=== PATIENT | male | born 1945 | race Caucasian/White ===

== ENCOUNTER 2020-02-25 09:31 | Inpatient (IN) | payer OTHER, MEDICARE ==
[~2020-02-25] VITALS: Ht 167.6 cm; Wt 65.8 kg
[2020-02-25 10:08] LABS: BASOPHILS % 0.2 % (0.0-2.0); EOSINOPHILS % 0.2 % (0.0-5.0); HEMATOCRIT. 41.2 % (42.0-52.0); HEMOGLOBIN. 13.6 g/dL (14.0-18.0); LYMPHOCYTES % 15.4 % (20.0-50.0); MEAN CORPUSCULAR HEMOGLOBIN 28.7 pg (28.0-32.0); MEAN CORPUSCULAR VOLUME 87.2 fL (80.0-94.0); MEAN PLATELET VOLUME 9.7 fl (7.4-10.4); MONOCYTES % 5.6 % (2.0-8.0); NEUTROPHILS % 78.6 % (40.0-76.0); PLATELET 194 x1000/uL (130-400); RED BLOOD CELL COUNT 4.73 mill/uL (4.7-6.1); RED CELL DISTRIBUTION WIDTH 14.2 % (11.6-14.6)
[2020-02-25 10:15] LABS: CHLORIDE 104 mEq/L (98-107)
[2020-02-25 10:18] LABS: PROTHROMBIN TIME 10.1 sec (9.6-11.0)
[2020-02-25] MEDS ORDERED: SODIUM CHLORIDE 0.9% 1,000 ML IV ONE (10:59)
[2020-02-25] MEDS ORDERED: ASPIRIN 325MG EC TABLET PO NR (11:00)
[2020-02-25] MEDS ORDERED: TRAZODONE HCL 50MG TABLET PO PRN (12:45)
[2020-02-25] MEDS ORDERED: ACETAMINOPHEN 325MG TABLET PO PRN (12:45)
[2020-02-25] MEDS ORDERED: ONDANSETRON HCL 4MG/2ML INJ IV PRN (12:45)
[2020-02-25] MEDS: SODIUM CHLORIDE 0.9% 1,000 ML IV SCH ×2 (12:52→18:11)
[2020-02-25 17:14] VITALS: BP 158/88
[2020-02-25 17:27] VITALS: BP 158/88
[2020-02-25 18:00] VITALS: BP 129/52
[2020-02-25 20:00] VITALS: BP 130/68
[2020-02-25] MEDS: HEPARIN 5000 UNITS/ML VIAL SUBCUT SCH (20:18)
[2020-02-25] MEDS: ATORVASTATIN CALCIUM 10MG TABLET PO SCH (20:18)
[2020-02-25 22:00] VITALS: BP 98/49
[2020-02-26] VITALS (30 sets, daily range): BP systolic 104–197; BP diastolic 58–104
[2020-02-26 06:25] LABS: BASOPHILS % 0.2 % (0.0-2.0); EOSINOPHILS % 1.9 % (0.0-5.0); HEMATOCRIT. 36.9 % (42.0-52.0); HEMOGLOBIN. 12.3 g/dL (14.0-18.0); LYMPHOCYTES % 30.2 % (20.0-50.0); MEAN CORPUSCULAR HEMOGLOBIN 29.1 pg (28.0-32.0); MEAN CORPUSCULAR VOLUME 87.1 fL (80.0-94.0); MEAN PLATELET VOLUME 10.2 fl (7.4-10.4); MONOCYTES % 9.6 % (2.0-8.0); NEUTROPHILS % 58.1 % (40.0-76.0); PLATELET 149 x1000/uL (130-400); RED BLOOD CELL COUNT 4.24 mill/uL (4.7-6.1); RED CELL DISTRIBUTION WIDTH 14.1 % (11.6-14.6)
[2020-02-26 06:53] LABS: CHLORIDE 109 mEq/L (98-107)
[2020-02-26] MEDS: SODIUM CHLORIDE 0.9% 1,000 ML IV SCH (07:30)
[2020-02-26] MEDS: POTASSIUM CHLORIDE 20MEQ TABLET SR PO SCH (09:32)
[2020-02-26] MEDS: HEPARIN 5000 UNITS/ML VIAL SUBCUT SCH ×2 (09:33→21:03)
[2020-02-26] MEDS: AMLODIPINE 2.5MG TABLET PO SCH ×2 (09:33→21:03)
[2020-02-26] MEDS ORDERED: NEBI10TA2 PO (11:51)
[2020-02-26] MEDS ORDERED: NIFE90TA2 PO (11:51)
[2020-02-26] MEDS: NEBIVOLOL HCL 5 MG TABLET PO SCH (12:02)
[2020-02-26] MEDS: NIFEDIPINE XL 90MG TAB PO SCH (12:03)
[2020-02-26] MEDS ORDERED: GABA-529 PO (12:07)
[2020-02-26] MEDS ORDERED: LOSA100T32 PO (12:13)
[2020-02-26] MEDS ORDERED: ATOR-2 PO (12:13)
[2020-02-26] MEDS ORDERED: TRIA1TAB92 MT (12:13)
[2020-02-26] MEDS ORDERED: EZET10TA13 PO (12:13)
[2020-02-26] MEDS ORDERED: HYDR100T26 PO (12:13)
[2020-02-26] MEDS: ATORVASTATIN CALCIUM 10MG TABLET PO SCH (21:03)
[2020-02-27] VITALS (10 sets, daily range): BP systolic 108–145; BP diastolic 58–81
[2020-02-27 07:36] LABS: BASOPHILS % 0.5 % (0.0-2.0); EOSINOPHILS % 2.3 % (0.0-5.0); HEMATOCRIT. 38.3 % (42.0-52.0); LYMPHOCYTES % 29.1 % (20.0-50.0); MEAN CORPUSCULAR HEMOGLOBIN 29.5 pg (28.0-32.0); MEAN CORPUSCULAR VOLUME 86.6 fL (80.0-94.0); MEAN PLATELET VOLUME 9.9 fl (7.4-10.4); MONOCYTES % 7.9 % (2.0-8.0); NEUTROPHILS % 60.2 % (40.0-76.0); PLATELET 149 x1000/uL (130-400); RED BLOOD CELL COUNT 4.42 mill/uL (4.7-6.1); RED CELL DISTRIBUTION WIDTH 14.3 % (11.6-14.6)
[2020-02-27 08:08] LABS: CHLORIDE 105 mEq/L (98-107)
[2020-02-27] MEDS: POTASSIUM CHLORIDE 20MEQ TABLET SR PO SCH (08:44)
[2020-02-27] MEDS: NEBIVOLOL HCL 5 MG TABLET PO SCH (08:44)
[2020-02-27] MEDS: HEPARIN 5000 UNITS/ML VIAL SUBCUT SCH (08:44)
[2020-02-27] MEDS: AMLODIPINE 2.5MG TABLET PO SCH (08:44)
[2020-02-27] MEDS: NIFEDIPINE XL 90MG TAB PO SCH (08:45)
== END 2020-02-27 11:48 | disposition home or self-care (01) | DRG 312 ==
LOC: ER 09:31 → 3WST 11:37 → EDBEDREQTM 11:45 → EDBEDREQ 11:45 → ENRESERV 16:15
PROVIDERS: ADMIT Specialist; ATTEND Specialist
DX: I95.2 Hypotension due to drugs (principal); N17.9 Acute kidney failure, unspecified; R73.9 Hyperglycemia, unspecified; I10 Essential (primary) hypertension; Z95.5 Presence of coronary angioplasty implant and graft; I25.10 Atherosclerotic heart disease of native coronary artery without angina pectoris; E78.5 Hyperlipidemia, unspecified; M54.9 Dorsalgia, unspecified; R11.2 Nausea with vomiting, unspecified; Z90.49 Acquired absence of other specified parts of digestive tract; T46.5X5A Adverse effect of other antihypertensive drugs, initial encounter; Y92.89 Other specified places as the place of occurrence of the external cause
CPT/HCPCS: 36415; 71045; 80053; 80061; 83735; 83880; 84145; 84443; 84484; 85025; 93005; 93306; 97162; 97166; 99285; J1644

== ENCOUNTER 2021-03-13 09:58 | Emergency (ER) | payer OTHER, MEDICARE ==
[~2021-03-13] VITALS: Ht 162.6 cm; Wt 68.0 kg
[~2021-03-13 09:58] MED LIST: ATOR-2 PO; EZET10TA13 PO; GABA-529 PO; NEBI10TA2 PO; NIFE90TA2 PO
[2021-03-13 13:29] LABS: BASOPHILS % 0.1 % (0.0-2.0); HEMATOCRIT. 41.4 % (42.0-52.0); HEMOGLOBIN. 14.1 g/dL (14.0-18.0); LYMPHOCYTES % 16.6 % (20.0-50.0); MEAN CORPUSCULAR HEMOGLOBIN 28.2 pg (28.0-32.0); MEAN CORPUSCULAR VOLUME 82.8 fL (80.0-94.0); MEAN PLATELET VOLUME 9.6 fl (7.4-10.4); NEUTROPHILS % 69.3 % (40.0-76.0); PLATELET 115 x1000/uL (130-400); RED CELL DISTRIBUTION WIDTH 14.1 % (11.6-14.6)
[2021-03-13 13:33] LABS: CHLORIDE 99 mEq/L (98-107)
[2021-03-13 14:29] LABS: PROTHROMBIN TIME 10.3 sec (9.6-11.0)
[2021-03-13 14:30] LABS: CLARITY URINE CLEAR (CLEAR); COLOR URINE YELLOW (YELLOW); KETONES URINE 1+ (NEGATIVE); LEUKOCYTE ESTERASE URINE NEGATIVE (NEGATIVE); NITRITE URINE NEGATIVE (NEGATIVE); OCCULT BLOOD URINE NEGATIVE (NEGATIVE); PH URINE 6.5 (4.5-8.0); PROTEIN URINE 1+ (NEGATIVE); SPECIFIC GRAVITY URINE 1.008 (1.005-1.030)
[2021-03-13] MEDS ORDERED: CEFTRIAXONE 1 G PREMIX 50 ML IV ONE (15:00)
[2021-03-13] MEDS ORDERED: AZITHROMYCIN 500 MG in DEXT 5% WATER 250 ML IV SCH (15:00)
[2021-03-13] MEDS ORDERED: AMOX-494 MT (16:34)
[2021-03-13 18:23] VITALS: BP 160/74
== END 2021-03-13 18:24 | disposition home or self-care (01) ==
LOC: ER 09:58
DX: U07.1 COVID-19 (principal); J18.9 Pneumonia, unspecified organism; R20.2 Paresthesia of skin; Z79.899 Other long term (current) drug therapy
CPT/HCPCS: 36415; 71045; 80053; 81003; 84484; 85025; 85610; 87040; 93005; 96365; 96367; 99285; C9803; J0456; J0696; J7060; U0003; U0005; Z7610

== ENCOUNTER 2021-03-18 12:22 | Emergency (ER) | payer OTHER, MEDICARE ==
[~2021-03-18] VITALS: Ht 160 cm; Wt 56.0 kg
[~2021-03-18 12:22] MED LIST changes: +AMOX-494 MT
[2021-03-18] MEDS ORDERED: KETOROLAC 30MG/ML VIAL IV STA (13:08)
[2021-03-18] MEDS ORDERED: SODIUM CHLORIDE 0.9% 1,000 ML IV ONE (13:15)
[2021-03-18 13:50] LABS: HEMATOCRIT. 36.6 % (42.0-52.0); HEMOGLOBIN. 12.9 g/dL (14.0-18.0); LYMPHOCYTES % 10.9 % (20.0-50.0); MEAN CORPUSCULAR HEMOGLOBIN 28.9 pg (28.0-32.0); MEAN CORPUSCULAR VOLUME 81.9 fL (80.0-94.0); MEAN PLATELET VOLUME 9.5 fl (7.4-10.4); NEUTROPHILS % 79.1 % (40.0-76.0); PLATELET 163 x1000/uL (130-400); RED BLOOD CELL COUNT 4.47 mill/uL (4.7-6.1)
[2021-03-18 13:55] LABS: CHLORIDE 98 mEq/L (98-107)
[2021-03-18 15:01] VITALS: BP 132/96
== END 2021-03-18 15:16 | disposition home or self-care (01) ==
LOC: ER 12:22
DX: R68.89 Other general symptoms and signs (principal); I10 Essential (primary) hypertension; F17.290 Nicotine dependence, other tobacco product, uncomplicated; Z79.899 Other long term (current) drug therapy
CPT/HCPCS: 36415; 71045; 80053; 83880; 84484; 85025; 96361; 96374; 99284; J1885; J7030

== ENCOUNTER 2024-04-26 11:38 | Inpatient (IN) | payer MEDICARE, OTHER ==
[~2024-04-26] VITALS: Ht 165.1 cm; Wt 67.1 kg
[~2024-04-26 11:38] MED LIST changes: -EZET10TA13 PO; +EZET10TA81 PO; +NEBI10TA10 PO; -NEBI10TA2 PO
[2024-04-26 12:28] LABS: BASOPHILS % 0.3 % (0.0-2.0); EOSINOPHILS % 1.4 % (0.0-5.0); HEMATOCRIT. 42.1 % (42.0-52.0); HEMOGLOBIN. 14.2 g/dL (14.0-18.0); LYMPHOCYTES % 47.4 % (20.0-50.0); MEAN CORPUSCULAR HEMOGLOBIN 28.9 pg (28.0-32.0); MEAN CORPUSCULAR HGB CONC 33.8 g/dL (31.0-37.0); MEAN CORPUSCULAR VOLUME 85.7 fL (80.0-94.0); MEAN PLATELET VOLUME 9.7 fl (7.4-10.4); MONOCYTES % 5.5 % (2.0-8.0); NEUTROPHILS % 45.4 % (40.0-76.0); PLATELET 199 x1000/uL (130-400); RED BLOOD CELL COUNT 4.91 mill/uL (4.7-6.1); RED CELL DISTRIBUTION WIDTH 14.3 % (11.6-14.6); WHITE BLOOD COUNT 12.8 x1000/uL (4.5-11.0)
[2024-04-26 12:47] LABS: CHLORIDE 101 mEq/L (98-107); POTASSIUM 3.6 mEq/L (3.5-5.1); SODIUM 137 mEq/L (136-145)
[2024-04-26 12:48] LABS: CALCIUM 9.5 mg/dL (8.7-10.4); CARBON DIOXIDE 26 mEq/L (21-32)
[2024-04-26 12:52] LABS: TROPONIN I HIGH SENSITIVITY 8 ng/L (3.0-53)
[2024-04-26 12:53] LABS: GLUCOSE 158 mg/dL (70-105); UREA NITROGEN BLOOD 14 mg/dL (9-23)
[2024-04-26 13:06] LABS: ETHANOL BLOOD < 10 mg/dL (<10)
[2024-04-26 13:51] LABS: PROTHROMBIN TIME 10.9 sec (9.6-11.0)
[2024-04-26 15:32] LABS: TROPONIN I HIGH SENSITIVITY 10 ng/L (3.0-53)
[2024-04-26 17:48] VITALS: BP 180/80; PULSE 100; RESP 20; TEMP 36.6696; O2SAT 97
[2024-04-26 18:00] VITALS: BP 180/80; PULSE 100; RESP 21; TEMP 36.696
[2024-04-26] MEDS: AMLODIPINE 10MG TABLET PO NR (18:06)
[2024-04-26 19:10] VITALS: BP 168/87; PULSE 98; RESP 20; O2SAT 97
[2024-04-26] MEDS ORDERED: LISI20TA31 MT (19:15)
[2024-04-26] MEDS ORDERED: AMLO10TA4 MT (19:15)
[2024-04-26] MEDS ORDERED: HYDR50TA40 MT (19:15)
[2024-04-26 20:00] VITALS: BP 180/89; PULSE 96; RESP 25; TEMP 36.83628; O2SAT 97
[2024-04-26] MEDS: NITROGLYCERIN OINT 1GM/INCH UDPKT TD SCH (20:34)
[2024-04-26] MEDS: ATORVASTATIN CALCIUM 40MG TABLET PO SCH (20:35)
[2024-04-26] MEDS: AMLODIPINE 5MG TABLET PO SCH (22:04)
[2024-04-27] VITALS (9 sets, daily range): BP systolic 124–164; BP diastolic 70–91; PULSE 84–104; RESP 14–23; TEMP 36.61404–36.78072; O2SAT 93–96
[2024-04-27] MEDS ORDERED: NITROGLYCERIN OINT 1GM/INCH UDPKT TD SCH
[2024-04-27 04:18] LABS: CLARITY URINE CLEAR (CLEAR); COLOR URINE YELLOW (YELLOW); GLUCOSE URINE NEGATIVE (NEGATIVE); KETONES URINE NEGATIVE (NEGATIVE); LEUKOCYTE ESTERASE URINE NEGATIVE (NEGATIVE); NITRITE URINE NEGATIVE (NEGATIVE); OCCULT BLOOD URINE NEGATIVE (NEGATIVE); PH URINE 7.5 (4.5-8.0); PROTEIN URINE NEGATIVE (NEGATIVE); SPECIFIC GRAVITY URINE 1.014 (1.005-1.030); UROBILINOGEN URINE 0.2 E.U./dL (0.2-1.0)
[2024-04-27 05:00] LABS: *AMPHETAMINES SCREEN URINE NEGATIVE (NEGATIVE); *BARBITURATES SCREEN URINE NEGATIVE (NEGATIVE); *BENZODIAZEPINES SCREEN URINE NEGATIVE (NEGATIVE); *COCAINE SCREEN URINE NEGATIVE (NEGATIVE); CANNABINOID URINE SCREEN NEGATIVE (NEGATIVE); ECSTASY MDMA SCREEN URINE NEGATIVE (NEGATIVE); METHADONE URINE SCREEN NEGATIVE (NEGATIVE); OPIATES URINE SCREEN NEGATIVE (NEGATIVE); PHENCYCLIDINE URINE SCREEN NEGATIVE (NEGATIVE)
[2024-04-27] MEDS: CEFTRIAXONE 1GM/50ML 50 ML IV SCH (06:03)
[2024-04-27 08:38] LABS: CALCIUM 9.4 mg/dL (8.7-10.4); CHLORIDE 98 mEq/L (98-107); SODIUM 133 mEq/L (136-145)
[2024-04-27 08:39] LABS: CARBON DIOXIDE 27 mEq/L (21-32)
[2024-04-27 08:42] LABS: BASOPHILS % 0.2 % (0.0-2.0); EOSINOPHILS % 0.5 % (0.0-5.0); HEMATOCRIT. 42.5 % (42.0-52.0); HEMOGLOBIN. 13.9 g/dL (14.0-18.0); LYMPHOCYTES % 24.1 % (20.0-50.0); MEAN CORPUSCULAR HEMOGLOBIN 27.9 pg (28.0-32.0); MEAN CORPUSCULAR HGB CONC 32.6 g/dL (31.0-37.0); MEAN CORPUSCULAR VOLUME 85.4 fL (80.0-94.0); MEAN PLATELET VOLUME 9.3 fl (7.4-10.4); MONOCYTES % 7.9 % (2.0-8.0); NEUTROPHILS % 67.3 % (40.0-76.0); PLATELET 192 x1000/uL (130-400); RED BLOOD CELL COUNT 4.98 mill/uL (4.7-6.1); RED CELL DISTRIBUTION WIDTH 14.8 % (11.6-14.6); WHITE BLOOD COUNT 10.5 x1000/uL (4.5-11.0)
[2024-04-27 08:44] LABS: GLUCOSE 128 mg/dL (70-105); UREA NITROGEN BLOOD 12 mg/dL (9-23)
[2024-04-27] MEDS ORDERED: HYDR25TA78 PO (17:15)
[2024-04-27 20:34] LABS: TROPONIN I HIGH SENSITIVITY 20 ng/L (3.0-53)
[2024-04-28] MEDS ORDERED: CEFTRIAXONE 1GM/50ML 50 ML IV SCH (01:00)
== END 2024-04-27 18:50 | disposition home or self-care (01) | DRG 312 ==
LOC: ER 11:54 → EDBEDREQTM 14:38 → EDBEDREQ 14:38 → 3WST 16:42
PROVIDERS: ADMIT Internal Medicine; ATTEND Internal Medicine
DX: I95.1 Orthostatic hypotension (principal); I10 Essential (primary) hypertension; E78.5 Hyperlipidemia, unspecified; D72.829 Elevated white blood cell count, unspecified; R73.9 Hyperglycemia, unspecified; T46.5X5A Adverse effect of other antihypertensive drugs, initial encounter; Y92.89 Other specified places as the place of occurrence of the external cause; Z95.5 Presence of coronary angioplasty implant and graft; Z79.899 Other long term (current) drug therapy
CPT/HCPCS: 36415; 71045; 80048; 80305; 80320; 81003; 82962; 83880; 84484; 85025; 85379; 93005; 93306; 99285; J0696; G0480